=== PATIENT | male | born 1950 ===

== ENCOUNTER → 2016-12-21 | Outpatient (CLI) | payer BC ==
[~2016-12-21] MED LIST: GADAVIST IV PRN; LISI-725 PO
--- NOTE | 2016-12-21 09:19 | DIAGNOSTIC IMAGING REPORT ---
ABDOMEN COMBO CLINICAL HISTORY: 66 years-old Male presenting with LIVER MASS ON ULTRASOUND ON 12/20, MR for further characterization. TECHNIQUE: Multisequence, multiplanar MR imaging of the abdomen was performed before and after the administration of intravenous contrast. IV contrast: 10 mL of Eovist. COMPARISON: Ultrasound from 12/20/2016. FINDINGS: Localizer images: Unavailable. Lung bases: Dependent changes likely atelectasis. Normal heart size. No pericardial or pleural effusion. Liver: Normal morphology. Hepatic fat fraction measures 6.4% indicative of mild steatosis. No focal hepatic mass. The sonographic appearance of a prominent caudate lobe likely accounted for the apparent hepatic mass. No suspicious lesion. Patent hepatic vasculature. Postcontrast imaging is degraded by motion artifact. Biliary: No intrahepatic or extrahepatic biliary ductal dilatation. Normal excretion of contrast into the biliary system and to the duodenum. Gallbladder surgically absent. Pancreas: Normal. Spleen: Normal. Adrenal glands: Normal. Kidneys: Normal. No hydronephrosis. Bowel: Normal. No bowel obstruction. Peritoneal cavity: No free fluid or intraperitoneal gas. Lymph nodes: No enlarged lymph nodes in the abdomen or pelvis. Vasculature: Aorta and IVC patent and normal in caliber. Abdominal wall: Normal. Musculoskeletal: Normal. IMPRESSION: 1. Mild hepatic steatosis. 2. The apparent liver mass on ultrasound likely represented a prominent caudate lobe. No liver lesion. Electronically signed by: David Celis M.D. 12/21/2016 9:18 AM Dictated Date/Time: 12/21/2016 9:09 AM
== END | disposition home or self-care (01) ==
LOC: C.MRIBC 07:46
PROVIDERS: ATTEND Family Medicine
DX: K76.0 Fatty (change of) liver, not elsewhere classified (principal)